=== PATIENT | female | born 2005 | race Caucasian/White ===

== ENCOUNTER 2025-09-13 10:56 | Outpatient (CLI) | payer OTHER ==
[2025-09-13 12:15] LABS: COVID-19 AG NEGATIVE (NEGATIVE)
== END 2025-09-13 11:28 | disposition home or self-care (01) ==
LOC: LAB 10:56
DX: J11.1 Influenza due to unidentified influenza virus with other respiratory manifestations (principal); Z20.828 Contact with and (suspected) exposure to other viral communicable diseases